=== PATIENT | female | born 1985 | race Caucasian/White ===

== ENCOUNTER 2017-08-19 19:00 | Emergency (ER) | payer OTHER ==
[2017-08-19 19:10] VITALS: BP 152/96; PULSE 102; RESP 20; TEMP 96.8; O2SAT 97
== END 2017-08-19 19:37 | disposition home or self-care (01) | DRG 918 ==
LOC: ED 19:00
DX: T63.461A Toxic effect of venom of wasps, accidental (unintentional), initial encounter (principal)
CPT/HCPCS: 99282

== ENCOUNTER 2018-07-31 16:45 | Emergency (ER) | payer SELFPAY ==
[2018-07-31] MEDS ORDERED: APAP/HYDROCODONE 1 EACH TABLET PO ONE (17:08)
[2018-07-31] MEDS ORDERED: APAP/HYDROCODONE 1 EACH TABLET ONE (17:09)
[2018-07-31 17:39] VITALS: TEMP 97.3
[2018-07-31 17:50] VITALS: BP 126/86; PULSE 86; RESP 16; O2SAT 99
== END 2018-07-31 18:16 | disposition home or self-care (01) | DRG 605 ==
LOC: ED 16:45
DX: S50.12XA Contusion of left forearm, initial encounter (principal); W01.0XXA Fall on same level from slipping, tripping and stumbling without subsequent striking against object, initial encounter
CPT/HCPCS: 73090; 99283; A9270-GY